=== PATIENT | female | born 1935 | race Caucasian/White ===

== ENCOUNTER → 2017-09-25 | Outpatient (CLI) | payer MEDICARE ==
[2017-09-25 16:36] LABS: HCT 38.2 % (34.0-46.0); HGB 12.8 gm/dL (11.4-16.0); MCH 31.4 pg (25.0-35.0); MCHC 33.4 g/dL (31.0-37.0); MCV 94.2 fL (80.0-100.0); Mean Platelet Volume 6.6; Platelet Count 296 k/uL (150-450); RBC 4.06 m/uL (3.80-5.40); RDW 13.4 % (11.5-15.5); WBC 6.7 k/uL (3.8-10.6)
[2017-09-25 16:41] LABS: Partial Thromboplastin Time 24.2 sec (22.0-30.0); Prothrombin Time 9.8 sec (9.0-12.0)
[2017-09-25 16:44] LABS: Appearance,Urine Clear (Clear); Bilirubin,Urine Negative (Negative); Blood,Urine Negative (Negative); Color,Urine Yellow; Glucose,Urine (UA) Negative (Negative); Ketones,Urine Negative (Negative); Leukocyte Esterase,Urine Trace (Negative); Mucus,Urine Occasional /hpf; Nitrite,Urine Negative (Negative); PH, Urine 5.5 (5.0-8.0); Protein,Urine Negative (Negative); RBC,Urine 1 /hpf (0-5); Specific Gravity,Urine 1.022 (1.001-1.035); Squamous Epithelial Cell,Urine <1 /hpf (0-4); Urobilinogen,Urine <2.0 mg/dL (<2.0); WBC,Urine 7 /hpf (0-5)
[2017-09-25 16:55] LABS: ALT 31 U/L (9-52); AST 24 U/L (14-36); Albumin 3.9 g/dL (3.5-5.0); Alkaline Phosphatase 101 U/L (38-126); Blood Urea Nitrogen 18 mg/dL (7-17); Calcium 9.1 mg/dL (8.4-10.2); Carbon Dioxide 27 mmol/L (22-30); Glucose 86 mg/dL (74-99); Potassium 3.9 mmol/L (3.5-5.1); Sodium 141 mmol/L (137-145); Total Bilirubin 0.4 mg/dL (0.2-1.3); Total Protein 6.4 g/dL (6.3-8.2)
[2017-09-25 17:12] LABS: Anion Gap 10 mmol/L; Chloride 104 mmol/L (98-107)
== END ==
LOC: LABWHC1 15:35
PROVIDERS: ATTEND Orthopaedic Surgery Sports Medicine
DX: Z01.818 Encounter for other preprocedural examination (principal); Z01.812 Encounter for preprocedural laboratory examination; Z79.899 Other long term (current) drug therapy
CPT/HCPCS: 36415; 80053; 81001; 85027; 85610; 85730; 87070; 93005

== ENCOUNTER 2017-10-15 14:40 | Inpatient (IN) | payer MEDICARE, OTHER ==
[2017-10-22] MEDS ORDERED: ACETAMINOPHEN TAB 500 MG TAB PO ONE (05:00)
[2017-10-22] MEDS ORDERED: TRANEXAMIC ACID 1,000 MG in SODIUM CHLORIDE 0.9% 50 ML IVPB ONE ×4 (05:00)
[2017-10-22] MEDS ORDERED: ONDANSETRON 4 MG/2 ML VIAL IVP ONE ×2 (05:00→05:38)
[2017-10-22] MEDS ORDERED: ceFAZolin IN SWFI 2 GM/20 ML SYRINGE IVP ONE (05:00)
[2017-10-22] MEDS ORDERED: HYDROmorphone 0.5 MG/0.5 ML SYRINGE IVP PRN ×3 (05:38→14:09)
[2017-10-22] MEDS ORDERED: LACTATED RINGERS 1,000 ML IV SCH (05:38)
[2017-10-22] MEDS ORDERED: MIDAZOLAM 2 MG/2 ML VIAL IV PRN (05:38)
[2017-10-22] MEDS ORDERED: MORPHINE SULFATE 4 MG/ML SYRINGE IV PRN (05:38)
[2017-10-22] MEDS ORDERED: LIDOCAINE 1% 20 ML VIAL (10MG/ML) FOR IV START INTRADERMA ONE (11:35)
[2017-10-22] MEDS ORDERED: PHENYLEPHRINE-0.9% NACL SYG 1 MG/10 ML SYRINGE ONE (12:12)
[2017-10-22] MEDS ORDERED: NEOSTIGMINE 1 MG/ML 10 ML VIAL ONE (12:12)
[2017-10-22] MEDS ORDERED: LIDOCAINE 1% INJ 10MG/ML (20 ML MDV) ONE (12:12)
[2017-10-22] MEDS ORDERED: fentaNYL (PF) 50 MCG/ML 2 ML AMP ONE (12:12)
[2017-10-22] MEDS ORDERED: MIDAZOLAM 2 MG/2 ML VIAL ONE (12:12)
[2017-10-22] MEDS ORDERED: PROPOFOL 10 MG/ML 20 ML VIAL IV ONE (12:12)
[2017-10-22] MEDS ORDERED: ROCURONIUM BROMIDE 10 MG/ML 10 ML VIAL IV ONE (12:12)
[2017-10-22] MEDS ORDERED: SUCCINYLCHOLINE CHLORIDE 100 MG/5 ML SYR IV ONE (12:12)
[2017-10-22] MEDS ORDERED: ROPIVACAINE 5 MG/ML 30 ML VIAL ONE (12:12)
[2017-10-22] MEDS ORDERED: SODIUM CHLORIDE 0.9% 100 ML BAG ONE (12:12)
[2017-10-22] MEDS ORDERED: LIDOCAINE 2%-EPI 1:100,000 20 ML VIAL ONE (12:12)
[2017-10-22] MEDS ORDERED: TRANEXAMIC ACID 1,000 MG/10 ML VIAL ONE (12:12)
[2017-10-22] MEDS ORDERED: GLYCOPYRROLATE 0.2 MG/ML 2 ML VIAL ONE (12:12)
[2017-10-22] MEDS ORDERED: ceFAZolin 3,000 MG in SODIUM CHLORIDE 0.9% IRRIGATIO 3,000 ML IRRIGATION ONE (12:51)
[2017-10-22] MEDS ORDERED: VANCOMYCIN 1,000 MG VIAL MISCELLANE ONE (13:32)
[2017-10-22] MEDS ORDERED: SENNOSIDES-DOCUSATE SODIUM 1 EACH TAB PO PRN (14:09)
[2017-10-22] MEDS ORDERED: diphenhydrAMINE 25 MG CAP PO PRN (14:09)
[2017-10-22] MEDS ORDERED: METOCLOPRAMIDE 5 MG/ML 2 ML VIAL IVP PRN (14:09)
[2017-10-22] MEDS ORDERED: TEMAZEPAM 15 MG CAP PO PRN (14:09)
[2017-10-22] MEDS ORDERED: ONDANSETRON 4 MG/2 ML VIAL IVP PRN (14:09)
[2017-10-22] MEDS ORDERED: hydrOXYzine PAMOATE 25 MG CAP PO PRN (14:09)
[2017-10-22] MEDS ORDERED: HYDROcodone/APAP 5-325MG 1 EACH TAB PO PRN (14:09)
--- NOTE | 2017-10-22 14:32 | XR ---
Right shoulder HISTORY: Status post right shoulder arthroplasty Single frontal view of the right shoulder. Patient is status post reverse shoulder total arthroplasty. There is an indwelling drain. Alignment i s maintained. Right lung as visualized is normal. There is an azygos lobe. IMPRESSION: Orthopedic follow-up.
--- NOTE | 2017-10-22 15:21 | OP ---
OPERATIVE REPORT DATE OF PROCEDURE: 10/22/2017. PREOPERATIVE DIAGNOSIS: Right shoulder advanced rotator cuff arthropathy. POSTOPERATIVE DIAGNOSIS: Right shoulder advanced rotator cuff arthropathy. OPERATION: 1. Right reverse total shoulder arthroplasty. 2. Right long head of the biceps tenodesis. SURGEON: Steve Coronado MD [employer]CHOOL SPECIAL EDUCATION TEACHER: ALFONSO Colindres. ANESTHESIA: General endotracheal. ESTIMATED BLOOD LOSS: 150 mL. COMPLICATIONS: None apparent. DRAINS: One deep drain. DISPOSITION: Postanesthesia care unit. INDICATIONS: Evelyn is a very pleasant 82-year-old female who slipped and fell onto her right shoulder several months ago. She sustained an anterior dislocation of the shoulder, which also caused a massive rotator cuff tear. She has had quite a bit of pain and inability to utilize her arm since that time. Both operative and nonoperative management was discussed with her and her daughters in detail. She feels that she has failed nonoperative treatment like to proceed with operative intervention. The risks were discussed with Evelyn and her family in detail. These risks include, but are not limited to risk of infection, nerve damage, bleeding, pain, instability in this of the shoulder, loosening of the implants and deep infection. There is also a small risk of deep vein thrombosis which could lead to fatal pulmonary embolism. The patient and her daughters understood the risks. All of her questions with regard to the procedure were answered to her satisfaction. Appropriate informed consent was obtained. DESCRIPTION OF THE PROCEDURE: The patient identified in preoperative holding area. Surgical site was marked by both the patient and myself. She was given 2 g of Ancef IV for prophylactic purposes. She was then transferred to the operative suite. She was placed supine on the operative table. General anesthetic was then administered and dosed per the anesthesia without apparent complication. Examination under anesthesia was then performed of the right shoulder. Elevation was to 150 degrees, external rotation at the side was to 70 degrees. She was then placed into the beach chair position well-padded in preparation for surgery. Great care was taken to ensure the cervical spine is in neutral alignment well-padded and maintained that way throughout the operative procedure. Great care was also taken to ensure that her legs were appropriately padded as well. The patient's right upper extremity is then prepped and draped in usual sterile fashion. Standard surgical pause undertaken to ensure that we were operating the correct site and that appropriate preoperative antibiotics were given. All staff in the room in agreement we proceeded. The acromion AC joint clavicle and coracoid were marked surgical pen. The planned 10 cm incision starting at the level of the clavicle and extending distally over the deltopectoral interval approximately 1 cm lateral to the coracoid was marked surgical pen. The incision was then made with a 10 blade scalpel. Dissection carried down sharply to the deltoid fascia. The deltopectoral interval was identified at the level of the clavicle. A small band retractor was then placed onto the proximal deltoid. I then released the deltoid fascia on the lateral aspect of the cephalic vein. The vein was left in its bed medially. The cephalic vein was protected throughout the entire case. I then identified the clavipectoral fascia. It was incised proximally at the level of the coracoacromial ligament. The coracoacromial ligament was left intact. I then used my finger to spread the interval between the conjoint tendon and the subscapularis. I felt for the axillary nerve which was readily palpable. I then cleared the subacromion and subdeltoid spaces of bursal and scar tissue. She had abundant scar tissue in the subacromial subdeltoid spaces. I then utilized a Brown retractor to hold the deltoid and expose the humeral head. I then proceeded with the anterior exposure of the shoulder. She had a pseudo capsule around encompassing the humeral head. The subscapularis was completely torn and retracted. There was only a very few inferior fibers of the subscapularis were still intact. The pseudo capsule was then excised sharply with the electrocautery. I then continued to release the inferior capsule along the inferior neck in a vertical fashion to about the 6 o'clock position. Great care was taken to ensure the capsule was always visualized as it was released to avoid injuring the axillary nerve. I then brought the Chappell brim pouncing machine operator with the arm externally rotated and abducted. I continued to release the capsule inferomedially to the 4 o'clock position. She had very minimal inferior osteophytes. These were removed at this time. This was done with a rongeur. I then proceeded with preparation of the humerus. I removed all the goat's her osteophytes. She had a medially subluxed long head of the biceps tendon. I then performed a tenodesis of the long head of the biceps tendon to the superior fibers of the pectoralis tendon. This was done with multiple 0 Vicryl interrupted suture. I then proceeded with preparation of the humerus. I removed all the goat's her osteophytes. I then removed the subchondral plate from the superior aspect of the humeral head utilizing a large rongeur. I then used a starter reamer to gain access to the humeral canal. This was 1 cm medial to the rotator cuff insertion and 1 cm posterior to the bicipital groove. I then prepared the humeral canal with hand reaming. I started with a 6 mm reamer and increased in 1 mm increments until firm resistance was encountered. This was at 11 mm. The reamer handle was then left in place. I then utilized a humeral resection guide set at 30 degrees of retrotorsion. The cutting block was set at the previous insertion of the rotator cuff. I then proceed to osteotomize the humeral head with an oscillating saw. I removed the resection guide and then completed the osteotomy. I then proceeded with trial stem placement. I started with a size 6 broach and incrementally increased up to a size 11 broach. The broaching was done in 30 degrees of retrotorsion. The 11 mm trial stem was then left in place. I then proceeded to utilize a bone hook to pull the humerus out laterally. I inspected the joint for any loose bodies. The Bhattman retractor was then placed on the posterior glenoid rim. The arm was placed in approximately 80 degrees of abduction and in slight flexion on a Chappell stand. Proceeded to remove the hypertrophic labrum to definitively identify the actual glenoid. I then utilized a mini base plate guide and then I placed the threaded starting pin in approximately 10 degrees of inferior tilt in the center of the glenoid. I then utilized the mini base plate reamer. This was then taken down flush with the glenoid. Again this took off preferentially slightly more inferior glenoid. I then placed the real base plate. I had the route sales representative open a [employer] mini base plate. This was then impacted onto the real glenoid. The starting pin was then removed. I then proceeded with placement of the central screw. I utilized a 30 mm central screw. This had excellent purchase in bone. I was able to rotate the scapula once it was seated appropriately. I then proceeded to place a peripheral locking screws. I placed the inferior locking screws placed first. This was a 25 x 5 mm screw. The superior screw is a 15 mm screw and the anterior screw is a 15 mm screw. The posterior locking screw was not placed. I then had the route sales representative open a 36 mm glenosphere. The offset was then preferentially done to offset the glenosphere inferiorly as much as possible. The real glenosphere was then impacted onto the Ivy taper of the base plate. I then proceeded to trial with the real glenosphere. I started with a standard base plate in a standard tray. This seemed just slightly loose. I then went with the standard tray and a +3 poly. This fit very nicely. The deltoid was not placed under any undue tension. It was very stable throughout a full range of motion. There was no impingement noted. The conjoined tendon had normal tension as well. I decided to proceed with a standard tray and +3 poly. The shoulder was then carefully dislocated. The wound was thoroughly irrigated with sterile saline solution with antibiotic added. I then had the route sales representative open a [employer] size 11 mini stem, a standard tray and a +3 poly. The poly was then impacted onto the tray on the back table. The 11 mini stem was then impacted into the proximal humerus in approximately 30 degrees of retrotorsion. The Ivy taper was dried and then the tray was then impacted onto the stem. The shoulder was then carefully reduced. It was reduced very nicely. It was taken through full range of motion. Again it was stable and there was no impingement noted. At this point time no further work was deemed necessary. A deep drain was then placed deep to the deltoid and then brought out through superiorly away from the incision through the skin. Again the wound was thoroughly irrigated with sterile saline solution with antibiotic added. 500 mg of vancomycin powder was then placed deep into the wound. The deltopectoral interval was reapproximated with 0 Vicryl interrupted suture. Again the wound was thoroughly irrigated with sterile saline solution with antibiotic added. The remaining 500 mg of vancomycin powder was then placed on top of the deltoid and pectoralis muscles. The subcutaneous tissue was then closed with 2-0 Vicryl suture. The skin was closed with 3-0 Quill suture. Dermabond was applied to the incision. All sponge and needle counts were deemed correct prior to closure. The patient tolerated the procedure without apparent complication. Her right upper extremity was placed into a standard sling. She was transferred recovery room in stable condition. MMODL / IJN: [id number] /
[2017-10-22] MEDS: LACTATED RINGERS 1,000 ML IV SCH (16:47)
[2017-10-22 17:17] VITALS: BMI 26.4
[2017-10-22 17:24] LABS: Basophils % (A) 0 %; Eosinophils # (A) 0.1 k/uL (0-0.7); Eosinophils % (A) 0 %; HCT 38.2 % (34.0-46.0); HGB 12.6 gm/dL (11.4-16.0); Lymphocytes # (A) 0.8 k/uL (1.0-4.8); Lymphocytes % (A) 5 %; MCH 31.1 pg (25.0-35.0); MCV 94.3 fL (80.0-100.0); Mean Platelet Volume 6.9; Monocytes # (A) 0.8 k/uL (0-1.0); Monocytes % (A) 6 %; Neutrophils # (A) 12.4 k/uL (1.3-7.7); Neutrophils % (A) 87 %; Platelet Count 262 k/uL (150-450); RBC 4.05 m/uL (3.80-5.40); RDW 13.6 % (11.5-15.5); WBC 14.2 k/uL (3.8-10.6)
--- NOTE | 2017-10-22 19:50 | P.ONQ ---
Anesthesiology Proc Note - PNB - Peripheral Nerve Block Performed Right Interscalene Single Indication: Acute Post-Operative Pain, Requested by physician Sedation Type: Sedate with meaningful contact maintained Preparation: Sterile Prep Position: Supine Needle Size: 50mm (2") Needle Gauge: 21 Technique: Ultrasound Injectate: 0.5% Ropivacaine (see comment for volume) (ropi .5% 30cc) Blood Aspirated: No Pain Paresthesia on Injection Noted: No Resistance on Injection: Normal Events: Uneventful and Well Tolerated
[2017-10-22] MEDS ORDERED: BENZOCAINE/MENTHOL LOZENG 1 EACH LOZENGE MUCOUS MEM PRN (20:21)
[2017-10-22] MEDS: ceFAZolin IN SWFI 2 GM/20 ML SYRINGE IVP SCH (20:39)
[2017-10-22] MEDS: DOXYCYCLINE 50 MG CAP PO SCH (20:39)
[2017-10-23] MEDS: HYDROmorphone 0.5 MG/0.5 ML SYRINGE IVP PRN ×2 (00:03→02:56)
[2017-10-23] MEDS: LACTATED RINGERS 1,000 ML IV SCH ×3 (04:36→22:00)
[2017-10-23] MEDS: ceFAZolin IN SWFI 2 GM/20 ML SYRINGE IVP SCH (04:49)
[2017-10-23] MEDS: HYDROcodone/APAP 5-325MG 1 EACH TAB PO PRN ×2 (05:56→11:25)
--- NOTE | 2017-10-23 07:21 | CONS ---
CONSULTATION DATE OF CONSULTATION: 10/22/17. REASON FOR CONSULTATION: Medical management requested by Dr. Coronado. CONSULTATION: This is a pleasant 82-year-old patient has undergone right shoulder surgery. Post procedure some pain is present. No nausea, vomiting. Chronic stable medical conditions include osteoarthritis, insomnia, GERD, incontinence. Denies any cardiac history. Post procedure no chest pain or short of breath. No nausea, vomiting. Did tolerate some diet, sitting up on bed. REVIEW OF SYSTEMS: CONSTITUTIONAL: None. HEENT: None. RESPIRATORY: None. CARDIOVASCULAR: None. GASTROINTESTINAL: Heartburn. GENITOURINARY: Urine incontinence. MUSCULOSKELETAL: Arthritic pain in joints. DERMATOLOGICAL, HEMATOLOGIC, LYMPHATIC: None. PSYCHIATRY: None. NEUROLOGICAL: Some trouble sleeping. PAST MEDICAL HISTORY: Osteoarthritis, left breast cancer 12 years ago, skin cancer on nose. PAST SURGICAL HISTORY: Back surgery, bladder surgery, breast surgery, hysterectomy, left breast lumpectomy, radiation, back surgery x2, left shoulder reverse total, left knee replaced, bladder suspension, reverse total right shoulder, LASIK surgery, repair of macular degeneration. SOCIAL HISTORY: Does not smoke or drink alcohol. Lives by herself. FAMILY HISTORY: Reviewed, noncontributory to presentation. HOME MEDICATIONS: Soma XL 1 tablet p.o. daily, melatonin 3 mg q.h.s. p.r.n., Celebrex 200 mg p.o. daily p.r.n., also takes Prilosec p.r.n. ALLERGIES: PENICILLIN. PHYSICAL EXAMINATION: On examination, temperature 97, pulse 72, respirations 16, blood pressure 134/55, pulse ox 94% on 2 L. GENERAL APPEARANCE: Average built, sitting up, comfortable. EYES: Pupils equal. Conjunctivae normal. HEENT: External appearance of nose and ears normal. Oral cavity normal. NECK: JVD not raised. Mass not palpable. RESPIRATORY: Effort, lungs are clear. CARDIOVASCULAR: First and second sounds, no edema. ABDOMEN: Soft, nontender. Liver and spleen not palpable. LYMPHATIC: No lymph node palpable in neck or axillae. PSYCHIATRY: Alert and oriented x3. Mood and affect normal. NEUROLOGICAL: Pupils equal. Cranial nerves grossly intact. Power and sensation grossly intact. EXTREMITIES: Right arm in a sling. MUSCULOSKELETAL: Evidence of osteoarthritis especially in the hands. INVESTIGATIONS: White count 14.2, hemoglobin 12.6. ASSESSMENT: 1. Right shoulder surgery. 2. Primary osteoarthritis, especially in the hands. 3. Chronic insomnia idiopathic. 4. Gastroesophageal reflux disease. 5. Chronic urinary stress incontinence. 6. Leukocytosis reactive from surgery. PLAN: Home medications are resumed. Patient has got Venodyne boots in place. Getting IV fluids. Care was discussed with the patient. Thank you Dr. Coronado. RANDY / KIMBERLEE: [id number] /
[2017-10-23] MEDS: DOXYCYCLINE 50 MG CAP PO SCH ×2 (09:24→21:59)
[2017-10-23] MEDS ORDERED: HYDROcodone/APAP 7.5-325MG 1 EACH TAB PO PRN (13:02)
--- NOTE | 2017-10-23 13:02 | P.PN ---
Subjective Progress Note Date: 10/23/17 Principal diagnosis: s/p right TSA Patient is seen at bedside this morning. She is postop day #1 from Right reverse total shoulder arthroplasty. She has pain at the surgical site as expected but denies any new complaints. She denies numbness, tingling or calf pain. Review of systems is negative for fever, chills, chest pain, shortness of breath or other Objective - Vital Signs Vital signs: Vital Signs Temp 97.3 F L 10/23/17 08:45 Pulse 90 10/23/17 08:45 Resp 16 10/23/17 08:45 BP 99/55 10/23/17 08:45 Pulse Ox 93 L 10/23/17 08:45 Intake & Output 10/22/17 10/23/17 10/23/17 18:59 06:59 18:59 Intake Total 701 240 Output Total 150 70 Balance 551 170 Weight 72.121 kg Intake: IV 701 Oral 240 Output: Drainage 70 Right Shoulder 70 Estimated Blood Loss 150 Other: # Voids 1 - Exam Inspection reveals a benign surgical wound. There is no active bleeding or drainage. Neurovascular status is intact throughout the right upper extremity with motor and sensation fully intact. Calves are soft and nontender. 2+ radial pulse and less than 2 second cap refill is present - Constitutional General appearance: Present: no acute distress - Psychiatric Psychiatric: Present: A&O x's 3, appropriate affect, intact judgment & insight - Labs CBC & Chem 7: 10/22/17 16:43 Labs: Abnormal Lab Results - Last 24 Hours (Table) 10/22/17 Range/Units 16:43 WBC 14.2 H (3.8-10.6) k/uL Neutrophils # 12.4 H (1.3-7.7) k/uL Lymphocytes # 0.8 L (1.0-4.8) k/uL Assessment and Plan (1) Osteoarthritis of right shoulder Narrative/Plan: Drain was pulled without complication. She will continue with routine postop orthopedic protocol including pain management, wound care, DVT prophylaxis and medical management. Expect that she will D/C to home tomorrow, Thursday. Current Visit: Yes Status: Acute Priority: Medium Code(s): M19.011 - PRIMARY OSTEOARTHRITIS, RIGHT SHOULDER SNOMED Code(s): [id number] Time with Patient: Less than 30
--- NOTE | 2017-10-23 22:19 | PN ---
PROGRESS NOTE DATE OF SERVICE: 10/23/2017 PRESENTING COMPLAINT: Right shoulder surgery. INTERVAL HISTORY: Patient is status post right shoulder surgery, doing better. Some pain is present. No nausea, vomiting, tolerating a diet. No new issues. REVIEW OF SYSTEMS: Done for constitutional, cardiovascular, GI, pulmonary; relevant findings as above. CURRENT MEDICATIONS: Reviewed. EXAMINATION: Temperature 97.3, pulse 90, respirations 16, blood pressure 99/55, pulse ox 93% on room air. GENERAL APPEARANCE: Sitting up, comfortable. EYES: Pupils equal. Conjunctivae normal. HEENT: External appearance of nose and ears normal. Oral cavity normal. NECK: JVD not raised. Mass not palpable. RESPIRATORY: Effort normal. Lungs are clear. CARDIOVASCULAR: First and second sounds normal. No edema. ABDOMEN: Soft, nontender. Liver and spleen not palpable. PSYCHIATRY: Alert and oriented x3. Mood and affect normal. Right arm in a support. INVESTIGATIONS: No blood work from today. ASSESSMENT: 1. Right shoulder surgery. 2. Primary osteoarthritis, especially in the hands. 3. Chronic insomnia, idiopathic. 4. Gastroesophageal reflux disease. 5. Chronic urinary stress incontinence. 6. Leukocytosis, reactive from surgery. PLAN: Stable. Continue current medication and treatment plan. MMODL / IJN: [id number] /
[2017-10-24] MEDS: HYDROcodone/APAP 7.5-325MG 1 EACH TAB PO PRN ×2 (03:44→12:55)
[2017-10-24 09:02] VITALS: BP 127/63; PULSE 86; RESP 14; TEMP 98.9
[2017-10-24] MEDS: DOXYCYCLINE 50 MG CAP PO SCH (09:02)
--- NOTE | 2017-10-24 10:59 | P.DS ---
Providers Date of admission: 10/22/17 11:00 Expected date of discharge: 10/24/17 Attending physician: Steve Coronado Consults: 10/22/17 14:09 Consult Physician Routine Consulting Provider: Lucretia Jacome Consult Reason/Comments: post op medical management Do you want consulting provider notified?: Yes 10/22/17 17:31 Consult Physician Routine Consulting Provider: Jarvis Tineo Consult Reason/Comments: medical management Do you want consulting provider notified?: Already Contacted Primary care physician: Lucretia Jacome - Discharge Diagnosis(es) (1) Status post total shoulder arthroplasty Current Visit: Yes Status: Acute (2) Osteoarthritis of right shoulder Current Visit: Yes Status: Acute Priority: Medium Hospital Course: This is an 82-year-old female who presented to our office with history of severe degenerative arthritis of the right shoulder. She is failed outpatient conservative measures. She presents to discuss surgical options. After discussion and consideration the patient elects proceed with total shoulder arthroplasty, right shoulder. The patient is admitted to [facility] on 10/22/2017 for total right shoulder arthroplasty. The procedure is performed without complication or sequelae. She is doing well from an orthopedic standpoint. She is ambulating independently. She has no new complaints or concerns on postoperative day #2. She is discharged to home in good condition. Patient Condition at Discharge: Good Plan - Discharge Summary Discharge Rx Participant: No New Discharge Prescriptions: New HYDROcodone/APAP 7.5-325MG [Reliance 7.5-325] 1 - 2 each PO Q6H PRN #60 tab PRN Reason: Pain No Action Celecoxib [CeleBREX] 200 mg PO DAILY PRN PRN Reason: arthritis Barnhart Xl 1 tab PO DAILY Melatonin 3 mg PO HS PRN PRN Reason: sleep Discharge Medication List Celecoxib [CeleBREX] 200 mg PO DAILY PRN 10/15/17 [History] Melatonin 3 mg PO HS PRN 10/15/17 [History] Barnhart Xl 1 tab PO DAILY 10/15/17 [History] HYDROcodone/APAP 7.5-325MG [Reliance 7.5-325] 1 - 2 each PO Q6H PRN #60 tab [Rx] Follow up Appointment(s)/Referral(s): Steve Coronado MD [STAFF PHYSICIAN] - 10 Days Activity/Diet/Wound Care/Special Instructions: maintain sling keep wound clean and dry take meds as directed f/u with Dr. Coronado in office May shower in 3 days if no bleeding Discharge Disposition: HOME SELF-CARE
== END 2017-10-24 13:24 | disposition home or self-care (01) | DRG 483 ==
LOC: EDSTATUS 14:40 → 2ORMAIN 10-22 11:00 → 3SUR 10-22 14:20
PROVIDERS: ADMIT Orthopaedic Surgery Sports Medicine; ATTEND Orthopaedic Surgery Sports Medicine
PROC: 0RRJ00Z Replacement of Right Shoulder Joint with Reverse Ball and Socket Synthetic Substitute, Open Approach (ICD-10-PCS; principal; 2017-10-22 12:00)
DX: M19.011 Primary osteoarthritis, right shoulder (principal); Z85.3 Personal history of malignant neoplasm of breast; Z85.828 Personal history of other malignant neoplasm of skin; S46.011D Strain of muscle(s) and tendon(s) of the rotator cuff of right shoulder, subsequent encounter; D72.828 Other elevated white blood cell count; F51.01 Primary insomnia; Z92.3 Personal history of irradiation; F51.04 Psychophysiologic insomnia; H35.30 Unspecified macular degeneration; K21.9 Gastro-esophageal reflux disease without esophagitis; N39.3 Stress incontinence (female) (male); Z91.81 History of falling; S43.014D Anterior dislocation of right humerus, subsequent encounter; Z90.710 Acquired absence of both cervix and uterus; Z88.0 Allergy status to penicillin; Z96.612 Presence of left artificial shoulder joint; Z96.642 Presence of left artificial hip joint; Z60.2 Problems related to living alone; M19.049 Primary osteoarthritis, unspecified hand
CPT/HCPCS: 64415; 85025; 88300